=== PATIENT | male | born 1965 | race Caucasian/White ===

== ENCOUNTER 2019-06-25 15:21 | Day surgery (SDC) | payer BC, OTHER ==
[~2019-06-25] VITALS: Ht 175.3 cm; Wt 108.9 kg
[~2019-06-25 15:21] MED LIST: BYSTOLIC 5 MG5 M1 PO; LIPITOR40 MG PO; LISINOPRIL-HCT1 EAC1 PO; LITE COAT ASPI325 MG PO; NORVASC5 MG PO
--- NOTE | 2019-06-29 17:07 | PATH ---
[facility] [address] [address] PATHOLOGY RPT PROCEDURE Name: AMITA NAGEL Room #: DEP [facility] M.R.#: [id number] Admission: 06/25/19 Date of : 63 Discharge: 06/25/19 Report #: [id number] Path Case #: [id number] [facility] Accession Number: [id number] . 01 Material submitted: . PART A: thumb - LEFT THUMB MASS. Modifiers: left PART B: finger - LEFT SMALL FINGER MASS. Modifiers: left . 01 Clinical history: . Ganglion, unspecified site . 02 Diagnosis: A. Soft tissue, left thumb mass, excision: - Cyst-like space lined by dense fibrous tissue associated with myxoid changes and chronic inflammation, consistent with the provided history of ganglion cyst. . B. Soft tissue, left small finger mass, excision: - Cyst-like space lined by dense fibrous tissue associated with myxoid changes and chronic inflammation, consistent with the provided history of ganglion cyst. . (IUV:mml; 06/29/2019) QLM 06/29/2019 1406 Local . 02 Electronically signed: . Sophia Ulloa MD, Pathologist NPI- [id number] . 01 Gross description: . A. The specimen is received in formalin, labeled "Amita Nagel, left thumb mass". Received are multiple segments of pale feldman partially cystic tissue measuring 0.8 x 0.8 x 0.1 cm in aggregate dimensions. The specimen is filtered and entirely submitted in cassette A1. . B. The specimen is received in formalin, labeled "Amita Nagel, left small finger mass". Received are two segments of pale feldman partially cystic tissue measuring 0.4 x 0.4 x 0.1 cm in aggregate dimensions. The specimen is filtered and entirely submitted in cassette B1. (CAA; 06/26/2019) QA/[facility] 06/26/2019 1659 Local . 02 Pathologist provided ICD-10: M67.442 . 02 CPT . 819625, [id number] [place] [address] PATHOLOGY RPT PROCEDURE Name: AMITA NAGEL Room #: DEP [facility] M.R.#: [id number] Admission: 06/25/19 Date of : 63 Discharge: 06/25/19 Report #: [id number] Path Case #: [id number] Specimen Comment: A courtesy copy of this report has been sent to [phone] Specimen Comment: Report sent to Performed at: [address], [place] [id number] MD Bryson Pozo MD Phone: [phone] Performed at: [address] [id number] MD Sophia Ulloa MD Phone: [phone]
== END 2019-06-25 18:35 | disposition home or self-care (01) ==
LOC: TBA 15:21 → OR 15:21 → TBA 15:30 → OR 18:35 → EDSTATUS 19:14
DX: M67.442 Ganglion, left hand (principal); I10 Essential (primary) hypertension; E78.5 Hyperlipidemia, unspecified; Z98.890 Other specified postprocedural states; Z79.899 Other long term (current) drug therapy; Z88.0 Allergy status to penicillin; Z88.8 Allergy status to other drugs, medicaments and biological substances
CPT/HCPCS: 50010; 50101; 50386; 56526; 57006; 57091; 57178; 70005